=== PATIENT | female | born 1985 | race African-American/Black ===

== ENCOUNTER 2019-02-14 19:08 | Emergency (ER) | payer OTHER ==
[~2019-02-14] VITALS: Ht 165.1 cm; Wt 102.1 kg
[2019-02-14] MEDS ORDERED: HYDROCHLOROTHIAZIDE (19:18)
[2019-02-14] MEDS ORDERED: TRAMADOL 50 MG50 MG (19:19)
[2019-02-14 19:45] LABS: HEMATOCRIT 36.6 % (37.0-47.0); HEMOGLOBIN 12.3 gm/dL (12.0-15.0); MCH 26.2 pg (26.0-34.0); MCHC 33.6 g/dL (28.0-37.0); MCV 78.1 fL (80.0-100.0); MPV 7.7 fl. (7.2-11.1); NUCLEATED RBCS 0 /100WBC; PLATELET COUNT* 267 thou/uL (150-400); RBC 4.68 mil/uL (4.20-5.00); RDW-CV 13.6 % (10.5-14.5); WBC 10.9 thou/uL (4.0-11.0)
[2019-02-14 19:54] LABS: CALCIUM 8.8 mg/dL (8.5-10.1); POTASSIUM 3.2 mmol/L (3.5-5.1)
[2019-02-14 20:01] LABS: INFLUENZA A ANTIGEN Negative (Negative)
[2019-02-14 20:07] LABS: ALBUMIN 3.6 g/dL (3.4-5.0); TOTAL BILIRUBIN 0.3 mg/dL (<0.1-1.0); TOTAL PROTEIN 7.9 g/dL (6.4-8.2)
[2019-02-14] MEDS ORDERED: TAMIFLU75 MG PO (20:18)
[2019-02-14] MEDS ORDERED: ATIVAN0.5 M1 PO (20:18)
[2019-02-14] MEDS ORDERED: MEDROL DOSPAK21 TA1 PO (20:18)
[2019-02-14 20:26] LABS: ABSOLUTE EOSINOPHILS 0.5 thou/uL (0.0-0.7); ABSOLUTE LYMPHOCYTES 0.2 thou/uL (0.8-5.3); ABSOLUTE MONOCYTES 0.3 thou/uL (0.0-1.2); ABSOLUTE NEUTROPHILS 9.8 thou/uL (1.6-8.1); PLATELET ESTIMATE ADEQUATE
[2019-02-14 20:52] VITALS: BP 121/75
--- NOTE | 2019-02-15 12:51 | EKG ---
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1985 Requested By: Jaycob Houser Order Number: [id number] MD: Sukhwinder Ferrer Measurements Intervals Vera Rate: 98 P: -6 MO: 135 QRS: 30 QRSD: 104 T: -27 QT: 356 QTc: 455 Interpretive Statements Sinus rhythm Borderline repolarization abnormality Baseline wander in lead(s) V5 No previous ECG available for comparison Electronically Signed On 02-15-2019 12:50:50 CONSULTING SENIOR PRACTICE DIRECTOR by Sukhwinder Ferrer [email or web address] <ELECTRONICALLY SIGNED> By: Sukhwinder Ferrer MD, [facility] 02/15/19 1250 1920 19 Sukhwinder Ferrer MD, FACC /EPI
== END 2019-02-14 20:53 | disposition home or self-care (01) ==
LOC: M.ERS 19:08
PROVIDERS: Emergency Medicine
DX: J11.1 Influenza due to unidentified influenza virus with other respiratory manifestations (principal); F41.9 Anxiety disorder, unspecified; Z88.0 Allergy status to penicillin